=== PATIENT | female | born 1945 | race Caucasian/White ===

== ENCOUNTER → 2023-12-21 09:31 | Outpatient (REF) | payer MEDICARE, OTHER, SELFPAY | LOC: HWRAD 09:31 | PROVIDERS: ATTENDING PHYSICIAN Obstetrics & Gynecology; FAMILY PHYSICIAN Physician Assistant Medical; REFERRING PHYSICIAN Internal Medicine Endocrinology, Diabetes & Metabolism | DX: M81.0 Age-related osteoporosis without current pathological fracture (principal); Z12.31 Encounter for screening mammogram for malignant neoplasm of breast | CPT/HCPCS: 77063; 77067; 77080 ==

== ENCOUNTER → 2024-01-01 06:24 | Day surgery (SDC) | payer MEDICARE, OTHER, SELFPAY | LOC: GI 06:24 | PROVIDERS: ATTENDING PHYSICIAN Internal Medicine | DX: K63.89 Other specified diseases of intestine (principal); K57.30 Diverticulosis of large intestine without perforation or abscess without bleeding; K64.8 Other hemorrhoids; K64.4 Residual hemorrhoidal skin tags; R93.3 Abnormal findings on diagnostic imaging of other parts of digestive tract | CPT/HCPCS: 45380; 88305 ==

== ENCOUNTER 2024-04-07 11:40 | Emergency (ER) | payer MEDICARE, OTHER, SELFPAY ==
[2024-04-07 11:53] VITALS: BP 148/74
[2024-04-07 12:10] LABS: % Basophils 0.5 % (0-2); % Eosinophils 4.2 % (0-6); % Immature Granulocytes 0.1 % (0-0.5); % Lymphocytes 26.1 % (20.5-51.1); % Monocytes 8.2 % (1.7-9.3); % Neutrophils 60.9 % (42.2-75.2); Absolute Eosinophils 0.3 10^3/uL (0-0.7); Absolute Monocytes 0.6 10^3/uL (0.1-0.6); Absolute Neutrophils 4.6 10^3/uL (1.4-6.5); Hematocrit 41.4 % (37.0-47.0); Hemoglobin 13.7 g/dL (12.0-16.0); Mean Corp Hgb Conc. 33.1 g/dL (33.0-37.0); Mean Corpuscular Hgb 31.1 pg (27.0-31.0); Mean Corpuscular Volume 94.1 fL (81.0-99.0); Mean Platelet Volume 9.9 fL (7.4-10.4); Nucleated Red Blood Cells % 0 %; Platelet Count 221 10^3/uL (130-400); Red Cell Dist. Width 12.7 % (11.5-14.5); White Blood Cell Count 7.6 10^3/uL (4.8-10.8)
[2024-04-07 12:31] LABS: ALT (SGPT) 34 U/L (0-35); AST (SGOT) 54 U/L (14-36); Albumin 4.8 g/dl (3.5-5.0); Alkaline Phosphatase 58 U/L (38-126); Blood Urea Nitrogen 23 mg/dl (7-17); Calcium 10.3 mg/dl (8.4-10.2); Carbon Dioxide 29 mmol/L (22-30); Chloride 104 mmol/L (98-107); Glucose 102 mg/dl (70-99); Potassium 5.2 mmol/L (3.5-5.1); Sodium 143 mmol/L (135-145); Total Bilirubin 0.6 mg/dl (0.2-1.3); eGFR > 60.00
[2024-04-07 12:41] LABS: Troponin I < 0.012 ng/ml
[2024-04-07 13:02] VITALS: BP 151/84; BMI 17.5
--- NOTE | 2024-04-07 13:54 | ED.GENMED ---
History of Present Illness
General
Chief Complaint: Chest Pain
Source: patient
Exam Limitations: none
Time Seen by Provider: 04/07/24 13:03
Nursing documentation reviewed up to this point in time: agreed with
History of Present Illness
History of Present Illness:
79-year-old female with a past medical history of hypertension, hyperlipidemia, distant history of GA (in the 1980s she says) who presents to the emergency room for evaluation of chest pain. Patient reports that while she was in bed last night she
woke up a few times and noticed she was having what felt like her typical indigestion. She says that in addition to her normal mild indigestion symptoms she said she noticed she was having some pressure in her jaw. She says that symptoms were
quite mild and she was able to get back to sleep. When she woke up this morning she had no indigestion symptoms but she did have an episode where she again had some pressure in her jaw that radiated behind her ears. She says that she was concerned
that it could potentially be a cardiac issue and so she called her tobacco stripper (Dr. Gonzales) and was recommended to be evaluated in the emergency room. She is asymptomatic here in the ER says that she feels well. She says aside from the above
symptoms she did not have any associated dizziness, shortness of breath. She has not had any recent cough, fevers, chills. Denies any swelling or pain in her legs. She reports that she usually walks 1.5 to 2 miles daily including this morning and
has had no limitation in her exercise, no exertional chest pains or shortness of breath. She says that she does have a long history of GI issues including indigestion and that her indigestion last night felt identical aside from that pressure
sensation in her jaw.
Past History
Past History
ED Past Medical History: CAD, HTN, Hypercholesterolemia, GA, Hypothyroidism and Other (osteoporosis, C-diff, Right wrist Fracture)
ED Past Surgical History: Gynecological (Hysterectomy) and Other (thyroidectomy, Right vein Stripping)
Social History
Tobacco: Former smoker
Alcohol: Occasional
Drug: None
Personal:
Living: with family
Employment: Retired
Family History
Family History: Other (Noncontributory)
Review of Systems
Review of Systems
All Other Systems: ROS reviewed and negative except as documented in HPI and ROS
Constitutional: Denies fever or chills
EENT: Reports other (Pressure in the jaw)
Respiratory: Denies cough or trouble breathing
Cardiac: Reports chest pain; Denies palpitations
ABD/GI: Denies abdominal pain, nausea, vomiting or diarrhea
: Denies flank pain
Musculoskeletal: Denies edema, neck pain or back pain
Neurological: Denies dizzy or headache
Phy Exam
Physical Exam
Physical Exam:
General: Awake, alert, oriented x3 and quite pleasant; no acute distress
Head: Normocephalic, atraumatic
Eyes: Conjunctiva normal
Throat: Airway intact, handling secretions
Neck: Trachea midline
Lungs: Clear to auscultation bilaterally, no wheezing, rales, rhonchi
Heart: Regular rate and rhythm, no murmurs, gallops, or rubs
Abd: Soft, non distended, nontender
Neuro: No gross deficits
Skin: no rash
Extremities: No edema in extremities, equal pulses in all extremities
Scores
Heart Failure Risk
Heart Failure Risk Score: Not Applicable
Heart Score for Chest Pain Patients
STEMI patient?: No
History: Slightly or Non-Suspicious
ECG: Normal
Age: >/= 65 years
Risk Factors: >/= 3 Risk Factors or History of CAD
Troponin: </= Normal Limit
Heart Score for Chest Pain Patients: 4
Heart Score Risk: 20.3% MACE over next 6 weeks
Withdrawal Assessment of Alcohol
Withdrawal Assessment Completed?: Not applicable
Course
Orders/Labs/Results
Orders:
Orders
04/07/24 11:55
ECG [Electrocardiogram (*1)] Urgent
Reason for Study: Chest Pain
04/07/24 11:56
EKG- Treatment ONCE
04/07/24 11:59
Complete Blood Count/With Diff Urgent
Comprehensive Metabolic Panel Urgent
Troponin I Urgent
04/07/24 14:45
Troponin I Urgent
Abnormal Lab Results
04/07/24
11:59
MCH 31.1 H pg
(27.0-31.0)
Potassium 5.2 H mmol/L
(3.5-5.1)
BUN 23 H mg/dl
(7-17)
Glucose 102 H mg/dl
(70-99)
Calcium 10.3 H mg/dl
(8.4-10.2)
AST 54 H U/L
(14-36)
04/07/24 11:59
04/07/24 11:59
Vital Signs
Initial and Last Documented VS:
Initial Vital Signs
Temp Pulse Resp BP Pulse Ox
36.9 C 83 18 148/74 96
04/07/24 11:53 04/07/24 11:53 04/07/24 11:53 04/07/24 11:53 04/07/24 11:53
Last Documented Vital Signs
Temp Pulse Resp BP Pulse Ox
36.9 C 81 18 151/84 96
04/07/24 11:53 04/07/24 13:02 04/07/24 13:02 04/07/24 13:02 04/07/24 11:53
MDM/Problems Addressed
Differential Diagnosis Includes:
Indigestion, ACS, pericarditis, costochondritis, anxiety
MDM/Problems Addressed:
79-year-old female with history as documented presents for evaluation after an episode of indigestion last night associated with some pressure in her jaw; had similar jaw pressure this morning and decided to come for evaluation. She is currently
asymptomatic. She has no exertional symptoms and is generally quite active with no recent limitation in her activity level. She was able to go for her normal walk this morning without any symptoms. Vital signs are normal here. Physical exam as
above. EKG no changes from prior. Will plan to place an IV check basic labs, serial troponins. Reassess after the above.
Initial labs reviewed: CBC and CMP essentially unremarkable�marginal hyperkalemia. Her troponin is undetectable x 1 with repeat pending. Continue to monitor.
Repeat troponin undetectable. Patient remains chest pain-free with reassuring vitals. I have very low clinical suspicion for emergent pathology based on history, exam, negative workup as above. I think she is stable for discharge, will have her
follow-up with her PCP and her tobacco stripper as an outpatient. She feels comfortable this plan. Spoke about return precautions and all questions answered.
Chronic conditions affecting care:
CAD, hypertension
*Radiology
Radiology exam reviewed: preliminary read by ED provider and radiology read reviewed
*Pulse Oximetry
Patient hypoxic: no
*EKG
Interpreted by ED Provider?: Yes
Comparison EKG: no changes
Heart Rate: 74
Rate: normal
Rhythm: sinus
[place]: left axis deviation
Interval: normal interval
QRS Pattern: normal QRS
Ischemia: non-specific ST changes (Unchanged)
*Critical Care Note
Total Time (30-74mins, 75-104mins- exclusive of procedures): Not Applicable
Data Reviewed
Source: patient and records
ED Attending Note
-
Portions of this chart may have been created with voice recognition software.� Occasional wrong word or��sound alike� substitutions may have occurred due to the inherent limitations of voice recognition software.
Discharge Plan
Departure
Patient Disposition: Home (Routine Discharge)
Date of Disposition: 04/07/24
Time of Disposition: 15:45
Patient with high blood pressure during this ER visit?: Yes
Discharge Problem:
Chest pain
Instructions: Chest Pain CBC Follow Up
Prescriptions:
No Action
levothyroxine [Synthroid] 88 MCG tablet
75 mcg PO DAILY
Rx Instructions:
taking 6 days a week MON-SAT
lisinopril 2.5 MG tablet
20 mg PO DAILY
ibandronate [Boniva] 150 MG tablet
150 mg PO .MONTHLY
Patient Comments:
second day of month
Fish Oil
1 tab PO BID
MULTIVITAMIN
1 tab PO DAILY
PROBIOTIC
1 tab PO DAILY
ezetimibe [Zetia] 10 mg Tablet
10 mg PO DAILY
aspirin 81 mg Capsule
81 mg PO DAILY
amoxicillin-pot clavulanate 875-125 mg tablet
1 tab PO BID Qty: 19 0RF
Referrals:
Papo Shetty PA-C [Family Provider] - Call in 1-3 days for appt
Ronnie Gonzales MD [Active] - Call in 1-3 days for appt
Activity Restrictions/Additional Instructions:
Thank you for visiting the Emergency Department at [facility].
1. Please schedule a follow up appointment as directed. Call first thing tomorrow morning to make an appointment.
2. If indicated, please take your medications as instructed and indicated on discharge paperwork.
3. If any of your symptoms do not improve, or persist, or become more severe within 6-12 hours, please return to the emergency department for further care.
4. Please return to the emergency department if you develop a headache, neck pain/stiffness, fever greater than 100.4F, chest pain, shortness of breath, persistent nausea, vomiting, slurred speech, difficulty walking, numbness/tingling, weakness,
signs of infection or any other symptoms that are worrisome to you.
Please call [phone] if you have any questions.
Interventions
Interventions:
*Risk Screen - Suicide Last Done: 04/07/24 13:02
*General Assessment Last Done: 04/07/24 13:02
*Neglect/Abuse Screening Last Done: 04/07/24 13:02
*ED COVID-19 Vaccine History Last Done: 04/07/24 13:02
ED- Cardiac Assessment Last Done: 04/07/24 13:02
Discharge Date and Time
Print Language: [place]
[2024-04-07 14:00] VITALS: BP 137/64
[2024-04-07 15:00] VITALS: BP 134/57
[2024-04-07 15:23] LABS: Troponin I < 0.012 ng/ml
== END 2024-04-07 16:01 | disposition home or self-care (01) ==
LOC: EMR 11:40
PROVIDERS: Emergency Medicine; EMERGENCY PHYSICIAN Emergency Medicine; FAMILY PHYSICIAN Physician Assistant Medical
DX: R07.89 Other chest pain (principal); I10 Essential (primary) hypertension; E78.00 Pure hypercholesterolemia, unspecified
CPT/HCPCS: 99284; 80053; 84484; 85025; 93005

== ENCOUNTER → 2024-07-01 10:24 | Outpatient (REF) | payer MEDICARE, OTHER, SELFPAY | LOC: DHVS 10:24 | PROVIDERS: ATTENDING PHYSICIAN Physician Assistant; FAMILY PHYSICIAN Physician Assistant Medical | DX: I65.23 Occlusion and stenosis of bilateral carotid arteries (principal) | CPT/HCPCS: 93880 ==

== ENCOUNTER → 2024-08-05 10:40 | Outpatient (REF) | payer MEDICARE, OTHER, SELFPAY | LOC: HWRAD 10:40 | PROVIDERS: ATTENDING PHYSICIAN Physician Assistant Medical | DX: M79.671 Pain in right foot (principal) | CPT/HCPCS: 73630 ==

== ENCOUNTER → 2024-12-22 09:47 | Outpatient (REF) | payer MEDICARE, OTHER, SELFPAY | LOC: HWWDC 09:47 | PROVIDERS: ATTENDING PHYSICIAN Obstetrics & Gynecology; FAMILY PHYSICIAN Physician Assistant Medical | DX: Z12.31 Encounter for screening mammogram for malignant neoplasm of breast (principal) | CPT/HCPCS: 77063; 77067 ==